=== PATIENT | male | born 1955 | race Caucasian/White ===

== ENCOUNTER 2017-07-03 13:29 | Emergency (ER) | payer OTHER ==
[~2017-07-03] VITALS: Ht 167.6 cm; Wt 87.1 kg
[~2017-07-03 13:29] MED LIST: CINN500C2 PO; GLIP5TAB10 PO; HYDR-2762 PO; IBUP-1027 PO; LISI-338 PO; METF-620 PO; OMEP40CA5 PO; WARF1TAB74 PO
[2017-07-03] MEDS ORDERED: ONDANSETRON PF 4 MG/2 ML VIAL. IV ONE (14:30)
[2017-07-03] MEDS ORDERED: IV NORMAL SALINE 1000ML BAG 1,000 ML IV ONE (14:30)
[2017-07-03] MEDS ORDERED: HYDROmorphone 2 MG/ML VIAL IV ONE (14:30)
[2017-07-03 14:36] LABS: BASO % 0 % (0-3); EOS % 1 % (0-3); HEMATOCRIT 38.2 % (39.0-53.0); HEMOGLOBIN 13.3 g/dL (13.0-17.5); LYMPH % 11 % (24-48); MEAN CORPUSCULAR HEMOGLOBIN 30 pg (25-35); MEAN CORPUSCULAR HGB CONC 35 g/dL (31-37); MEAN CORPUSCULAR VOLUME 86 fL (79-100); MONO % 9 % (0-9); NEUT % 79 % (31-73); PLATELET COUNT 115 x10^3/uL (140-400); RED BLOOD COUNT 4.47 x10^6/uL (4.30-5.70); RED CELL DISTRIBUTION WIDTH 13.8 % (11.5-14.5); WHITE BLOOD COUNT 9.5 x10^3/uL (4.0-11.0)
[2017-07-03 14:47] LABS: CALCIUM 8.7 mg/dL (8.5-10.1); GFR 76.2
[2017-07-03 14:53] LABS: ALBUMIN 3.9 g/dL (3.4-5.0); ALBUMIN/GLOBULIN RATIO 1.1 (1.0-1.7); TOTAL BILIRUBIN 0.7 mg/dL (0.2-1.0); TOTAL PROTEIN 7.5 g/dL (6.4-8.2)
--- NOTE | 2017-07-03 15:02 | PHYS DOC ---
Past Medical History Past Medical History: GERD, Hypertension Past Surgical History: Appendectomy, Other Additional Past Surgical Histo: left knee, right thumb Alcohol Use: None Drug Use: None Adult General Chief Complaint Chief Complaint: ABDOMINAL PAIN HPI HPI Patient is a 62 year old male who presents with 2 day history of moderate severity right upper quadrant abdominal pain, nausea, no vomiting or diarrhea worsened by eating. Denies fever. History of appendectomy. Denies any dysuria or frequency or flank pain. Review of Systems Review of Systems Constitutional: Denies fever or chills [] Eyes: Denies change in visual acuity, redness, or eye pain [] HENT: Denies nasal congestion or sore throat [] Respiratory: Denies cough or shortness of breath [] Cardiovascular: No additional information not addressed in HPI [] GI: Denies abdominal pain, nausea, vomiting, bloody stools or diarrhea [] : Denies dysuria or hematuria [] Musculoskeletal: Denies back pain or joint pain [] Integument: Denies rash or skin lesions [] Neurologic: Denies headache, focal weakness or sensory changes [] Endocrine: Denies polyuria or polydipsia [] Current Medications Current Medications Current Medications Medications (Trade) Dose Ordered Sig/Niecy Start Time Stop Time Status Last Admin Dose Admin Hydromorphone HCl (Dilaudid) 0.5 mg 1X ONCE 07/03/17 14:30 07/03/17 14:34 DC 07/03/17 15:06 0.5 MG Info (Do NOT chart on this entry -- for MONITORING) 1 each PRN DAILY PRN 07/03/17 17:45 07/03/17 19:47 DC Iohexol (Omnipaque 300 Mg/ml) 75 ml 1X ONCE 07/03/17 17:45 07/03/17 17:46 DC 07/03/17 18:08 75 ML Ondansetron HCl (Zofran) 4 mg 1X ONCE 07/03/17 14:30 07/03/17 14:34 DC 07/03/17 15:06 4 MG Sodium Chloride 1,000 ml @ 1,000 mls/hr 1X ONCE 07/03/17 14:30 07/03/17 15:29 DC 07/03/17 15:06 1,000 MLS/HR Allergies Allergies Allergies Coded Allergies Type Severity Reaction Last Updated Verified promethazine Allergy Intermediate 03/17/15 Yes Physical Exam Physical Exam Constitutional: Well developed, well nourished, no acute distress, non-toxic appearance. [] HENT: Normocephalic, atraumatic, bilateral external ears normal, oropharynx moist, no oral exudates, nose normal. [] Eyes: PERRLA, EOMI, conjunctiva normal, no discharge. [] Neck: Normal range of motion, no tenderness, supple, no stridor. [] Cardiovascular:Heart rate regular rhythm, no murmur [] Lungs & Thorax: Bilateral breath sounds clear to auscultation [] Abdomen: Bowel sounds normal, soft, no tenderness, no masses, no pulsatile masses. [] Skin: Warm, dry, no erythema, no rash. [] Back: No tenderness, no CVA tenderness. [] Extremities: No tenderness, no cyanosis, no clubbing, ROM intact, no edema. [] Neurologic: Alert and oriented X 3, normal motor function, normal sensory function, no focal deficits noted. [] Psychologic: Affect normal, judgement normal, mood normal. [] Current Patient Data Vital Signs Vital Signs Date Time Temp Pulse Resp B/P (MAP) Pulse Ox O2 Delivery O2 Flow Rate FiO2 07/03/17 17:57 124/67 (86) 07/03/17 17:41 76 23 94 Room Air 07/03/17 13:35 98.7 98.7 Lab Values Laboratory Tests Test 07/03/17 14:25 07/03/17 17:25 White Blood Count 9.5 x10^3/uL (4.0-11.0) Red Blood Count 4.47 x10^6/uL (4.30-5.70) Hemoglobin 13.3 g/dL (13.0-17.5) Hematocrit 38.2 % (39.0-53.0) L Mean Corpuscular Volume 86 fL (79-100) Mean Corpuscular Hemoglobin 30 pg (25-35) Mean Corpuscular Hemoglobin Concent 35 g/dL (31-37) Red Cell Distribution Width 13.8 % (11.5-14.5) Platelet Count 115 x10^3/uL (140-400) L Neutrophils (%) (Auto) 79 % (31-73) H Lymphocytes (%) (Auto) 11 % (24-48) L Monocytes (%) (Auto) 9 % (0-9) Eosinophils (%) (Auto) 1 % (0-3) Basophils (%) (Auto) 0 % (0-3) Neutrophils # (Auto) 7.5 x10^3uL (1.8-7.7) Lymphocytes # (Auto) 1.0 x10^3/uL (1.0-4.8) Monocytes # (Auto) 0.9 x10^3/uL (0.0-1.1) Eosinophils # (Auto) 0.1 x10^3/uL (0.0-0.7) Basophils # (Auto) 0.0 x10^3/uL (0.0-0.2) Sodium Level 136 mmol/L (136-145) Potassium Level 4.0 mmol/L (3.5-5.1) Chloride Level 100 mmol/L (98-107) Carbon Dioxide Level 26 mmol/L (21-32) Anion Gap 10 (6-14) Blood Urea Nitrogen 13 mg/dL (8-26) Creatinine 1.0 mg/dL (0.7-1.3) Estimated GFR (Cockcroft-Gault) 76.2 BUN/Creatinine Ratio 13 (6-20) Glucose Level 272 mg/dL (70-99) H Calcium Level 8.7 mg/dL (8.5-10.1) Total Bilirubin 0.7 mg/dL (0.2-1.0) Aspartate Amino Transferase (AST) 29 U/L (15-37) Alanine Aminotransferase (ALT) 54 U/L (16-63) Alkaline Phosphatase 64 U/L (46-116) Total Protein 7.5 g/dL (6.4-8.2) Albumin 3.9 g/dL (3.4-5.0) Albumin/Globulin Ratio 1.1 (1.0-1.7) Lipase 167 U/L (73-393) Urine Collection Type Void Urine Color Yellow Urine Clarity Clear Urine pH 5.0 Urine Specific [place] 1.020 Urine Protein Negative mg/dL (NEG-TRACE) Urine Glucose (UA) >=1000 mg/dL (NEG) Urine Ketones (Stick) Negative mg/dL (NEG) Urine Blood Negative (NEG) Urine Nitrite Negative (NEG) Urine Bilirubin Negative (NEG) Urine Urobilinogen Dipstick 0.2 mg/dL (0.2 mg/dL) Urine Leukocyte Esterase Negative (NEG) Urine RBC 0 /HPF (0-2) Urine WBC 0 /HPF (0-4) Urine Squamous Epithelial Cells None /LPF Urine Bacteria 0 /HPF (0-FEW) Urine Mucus Mod /LPF Laboratory Tests 07/03/17 14:25 Laboratory Tests 07/03/17 14:25 EKG EKG EKG [] Radiology/Procedures Radiology/Procedures Ultrasound gallbladder: [negative for gallstones or inflamm changes per radiology CT abd pelvis: pos epiploic appendagitis per radiology] Course & Med Decision Making Course & Med Decision Making Pertinent Labs and Imaging studies reviewed. (See chart for details) Plan of care labs and gallbladder sonogram and symptomatic treatment. Discussed w patient and labs and ct scan and US. may benefit from outpatient HIDA of gallbladder. Treat w pain meds. Counseled re need for diabetes treatment. Patient declined option for obs admission. Dragon Disclaimer Dragon Disclaimer This electronic medical record was generated, in whole or in part, using a voice recognition dictation system. Departure Departure Impression: Primary Impression: Epiploic appendagitis Additional Impression: Hyperglycemia due to type 2 diabetes mellitus Disposition: HOME, SELF-CARE Condition: IMPROVED Referrals: JENARO MERRILL MD (PCP) Patient Instructions: Abdominal Pain, [id number], Hyperglycemia, [id number] Additional Instructions: follow up with PCP for further workup and consideration for HIDA scan of gallbladder. Scripts Oxycodone/Apap 5-325 (PERCOCET 5-325 MG TABLET) 1 Each Tablet 1 TAB PO PRN Q6HRS Y for PAIN, #12 TAB 0 Refills Prov: YOLANDA MCALLISTER MD 07/03/17 Problem Qualifiers YOLANDA MCALLISTER MD Jul 03, 2017 15:02
--- NOTE | 2017-07-03 16:34 | RAD ---
Ultrasound abdomen limited 07/03/2017 Clinical indication: Right upper quadrant abdominal pain. Comparison: Ultrasound November 15, 2013. Findings: The visualized proximal pancreatic body unremarkable. Liver demonstrates increased parenchymal echogenicity compatible with steatosis which limits evaluation of the parenchyma without suspicious focal mass or fluid collection in the visualized portions. No intra or extra hepatic ductal dilatation. Common bile duct measures 4 mm. Right kidney is present measuring up to 12.0 cm in length without clicking system dilatation. Gallbladder is normal in size and configuration without wall thickening, pericholecystic fluid are cholelithiasis. Impression: 1. No sonographic evidence of acute cholecystitis. 2. Mild hepatic steatosis.
[2017-07-03 17:33] LABS: BILIRUBIN,URINE NEGATIVE (NEG); GLUCOSE,URINE >=1000 mg/dL (NEG); NITRITE,URINE NEGATIVE (NEG); PROTEIN,URINE NEGATIVE (NEG-TRACE); UROBILINOGEN,URINE 0.2 mg/dL (0.2 mg/dL)
[2017-07-03 17:38] LABS: BACTERIA,URINE 0 /HPF (0-FEW); RBC,URINE 0 /HPF (0-2); WBC,URINE 0 /HPF (0-4)
[2017-07-03] MEDS ORDERED: CONTRAST GIVEN MC PRN (17:45)
[2017-07-03] MEDS ORDERED: IOHEXOL 300 MG/ML 75 ML VIAL IV ONE (17:45)
[2017-07-03 17:57] VITALS: BP 124/67
--- NOTE | 2017-07-03 18:28 | RAD ---
CT SCAN OF THE ABDOMEN AND PELVIS WITH IV CONTRAST. History: Abdominal pain Comparison:None. Procedure: Contiguous axial images of the abdomen and pelvis were performed after the administration of 75 cc of Omnipaque 300 IV contrast and without oral contrast. CT Abdomen with contrast: Findings: There is a subtle area of inflammation which projects over the epiploic fat anterior to these hepatic flexure of the colon. The appendix appears to have been removed. Liver: Unremarkable Spleen: Unremarkable Pancreas: Unremarkable Adrenal Glands: Unremarkable Kidneys: Unremarkable There is no mass or lymphadenopathy. There is no free air. There is no free fluid. CT Pelvis with Contrast: Findings: The urinary bladder appears normal. There is no free fluid. There is no lymphadenopathy. Impression: Inflammation of the fat anterior to the hepatic flexure of the colon in the right upper quadrant is likely epiploic appendagitis. Other causes of fat infarction are felt to be less likely. PQRS Compliance Statement: One or more of the following individualized dose reduction techniques were utilized for this examination: 1. Automated exposure control 2. Adjustment of the mA and/or kV according to patient size 3. Use of iterative reconstruction technique Electronically signed by: Brendan Coulter III, MD (07/03/2017 6:25 PM) [facility]
[2017-07-03] MEDS ORDERED: OXYC-323 PO (19:04)
[2017-07-04] MEDS ORDERED: LORA10TA68 PO (18:12)
[2017-07-04] MEDS ORDERED: ACET325T9 PO (18:12)
[2017-07-08] MEDS ORDERED: METF500T PO (08:42)
== END 2017-07-03 19:20 | disposition home or self-care (01) ==
LOC: ER 13:29
DX: K63.89 Other specified diseases of intestine (principal); E11.65 Type 2 diabetes mellitus with hyperglycemia; I10 Essential (primary) hypertension; K21.9 Gastro-esophageal reflux disease without esophagitis; Z90.49 Acquired absence of other specified parts of digestive tract; Z88.8 Allergy status to other drugs, medicaments and biological substances
CPT/HCPCS: 36415; 74177; 76705; 80053; 81001; 83690; 85025; 96361; 96374; 96375; 99285; J1170; J2405; J7030; Q9967

== ENCOUNTER 2017-07-04 16:10 | Inpatient (IN) | payer OTHER ==
[~2017-07-04] VITALS: Ht 170.2 cm; Wt 85.7 kg
[~2017-07-04 16:10] MED LIST changes: +OXYC-323 PO
--- NOTE | 2017-07-04 16:28 | HP ---
ADMIT DATE: 07/04/2017 CHIEF COMPLAINT: Right upper quadrant pain. HISTORY OF PRESENT ILLNESS: A 62-year-old white male, mild diabetic and hypertensive, who had about 72 hours of right-sided abdominal pain. He was seen in the office on 07/01 and pain meds were given, but because of increasing pain he went to [facility] on 07/02. Gallbladder sonogram was normal. The CT scan showed epiploic appendage inflammation but no clear surgical problem or mass lesion. Laboratory studies were normal except for mildly elevated blood sugar and his most recent A1c was 7.9. He was given hydrocodone, but the pain has persisted and he was seen in the office and admitted. He has had no vomiting, fever, chills, skin rash or urinary tract symptoms. PAST MEDICAL HISTORY: Surgically ____ appendectomy. He takes only lisinopril and omeprazole, his A1c is 7.9 and metformin was to be started, but he has not started that medicine yet. SOCIAL HISTORY: Nonsmoker, retired program clerk, . Physically active. FAMILY HISTORY: Unremarkable. REVIEW OF SYSTEMS: No other GI symptoms and the most recent colonoscopy was about 2014. OBJECTIVE: ENT: All within normal limits. NECK: No masses, nodes or bruits. LUNGS: Clear. CARDIOVASCULAR: Regular rate. No tachycardia or murmur. ABDOMEN: Diffusely tender mainly in the right upper and lower quadrants. Bowel sounds are not present. He has guarding with no overt rebound. No distention. EXTREMITIES: Good pedal and radial pulses. No joint or skin lesions or nail bed findings. NEUROLOGIC: Physiologic and nonfocal. ASSESSMENT: Right-sided abdominal pain with evidence of epiploic appendagitis present as the most likely diagnosis. Must consider atypical gallbladder source as well. PLAN: Admit for IV fluids and pain medications. May consider hepatobiliary studies if pain persists. JENARO MERRILL MD DR: LEONIE/derick JOB#: [id number] / [id number]
[2017-07-04] MEDS ORDERED: HYDROmorphone 2 MG/ML VIAL IVP PRN (16:45)
[2017-07-04] MEDS: POTASSIUM CL 20MEQ D5-0.45NACL 1,000 ML IV SCH (16:45)
[2017-07-04] MEDS ORDERED: ONDANSETRON PF 4 MG/2 ML VIAL. IV PRN (16:45)
[2017-07-04] MEDS: KETOROLAC TROMETHAMINE 30 MG/ML INJ. IV PRN (17:04)
[2017-07-04 17:29] LABS: BASO % 0 % (0-3); EOS % 0 % (0-3); HEMATOCRIT 39.4 % (39.0-53.0); HEMOGLOBIN 13.4 g/dL (13.0-17.5); LYMPH % 10 % (24-48); MEAN CORPUSCULAR HEMOGLOBIN 30 pg (25-35); MEAN CORPUSCULAR HGB CONC 34 g/dL (31-37); MEAN CORPUSCULAR VOLUME 87 fL (79-100); MONO % 9 % (0-9); NEUT % 80 % (31-73); PLATELET COUNT 116 x10^3/uL (140-400); RED BLOOD COUNT 4.51 x10^6/uL (4.30-5.70); RED CELL DISTRIBUTION WIDTH 13.2 % (11.5-14.5); WHITE BLOOD COUNT 10.9 x10^3/uL (4.0-11.0)
[2017-07-04 17:46] LABS: ALBUMIN 3.6 g/dL (3.4-5.0); ALBUMIN/GLOBULIN RATIO 0.9 (1.0-1.7); CALCIUM 8.9 mg/dL (8.5-10.1); GFR 76.2; TOTAL BILIRUBIN 1.6 mg/dL (0.2-1.0); TOTAL PROTEIN 7.7 g/dL (6.4-8.2)
[2017-07-04] MEDS ORDERED: ACET325T9 PO (18:12)
[2017-07-04] MEDS ORDERED: LORA10TA68 PO (18:12)
[2017-07-04 19:00] VITALS: BP 118/69
[2017-07-04 23:07] VITALS: BP 106/64
[2017-07-05] MEDS: POTASSIUM CL 20MEQ D5-0.45NACL 1,000 ML IV SCH ×3 (00:45→20:38)
[2017-07-05 03:13] VITALS: BP 116/67
[2017-07-05] MEDS: ACETAMINOPHEN 325 MG TABLET. PO PRN (03:25)
--- NOTE | 2017-07-05 04:30 | ACF ---
Admission Forms Criteria ABDOMINAL PAIN Clinical Indications for Admission to Inpatient Care ( [place]/check or initial the applicable condition/criteria): Admission is indicated for ANY ONE of the following (1)(2)(3)(4)(5)(6): [ ]I. Surgery needed that cannot be performed on ambulatory basis [ ]II. Peritoneal signs present (eg, rebound tenderness, rigidity) [ ]III. Evaluation requires patient to not eat or drink for extended period ( eg, more than 24 hours). [X]IV. Inpatient admission required[B] rather than observation care (see Abdominal Pain: Observation Care guideline as appropriate) because of ANY ONE of the following(7)(8)(9): [ ] a) Hemodynamic instability [X]b) Severe pain requiring acute inpatient management [ ]c) Identification of etiology or finding that requires inpatient care (eg, aortic dissection, free air,bowel ischemia)(10) [ ]d) Absent bowel sounds with complete ileus (11) [ ]e) Signs of intestinal obstruction[C] [ ]f) Suspected toxic megacolon [ ]g) Severe electrolyte abnormalities requiring inpatient care [ ]h) High fever or infection requiring inpatient admission as indicated by ANY ONE of the following (12)(13): [ ]i) Appropriate outpatient or observation care antimicrobial treatment unavailable, not effective, or not feasible [ ]ii) Documented bacteremia [ ]iii) Temperature greater than 104.9 degrees F (40.5 degrees C) (oral) [ ]iv) Temperature greater than 103.1 degrees F (39.5 degrees C) ( oral) or less than 96.8 degrees F (36 degrees C) (rectal) that does not respond to all emergency treatment measures [ ]i) IV fluid required rather than oral rehydration to replace significant ongoing (eg, for greater than 24 hours) losses (greater than 3 L/m2 per day)(14)(15) [ ]j) Percutaneous or open drainage (eg, abscess, biliary tract) procedures [ ]k) Parenteral nutrition regimen that must be implemented on inpatient basis [ ]l) Other condition, treatment, or monitoring requiring inpatient admission Extended stay beyond goal length of stay may be needed for (1)(3)(4)(10)(16): [ ]a) Surgery (e.g., colectomy, revascularization procedure) [ ]b) Persistent abdominal pain with suspected intra-abdominal process [ ]c) Diagnosed condition requiring continued stay (e.g., pancreatitis, complicated diverticulitis) The original [facility] content created by [facility] has been revised. The portions of the content which have been revised are identified through the use of italic text, and [facility] has neither reviewed nor approved the modified material.All other unmodified content is copyright [facility]. Please see references footnoted in the original [facility] edition 2015 Admission Criteria Met?: Yes GERARDO PORTILLO Jul 05, 2017 04:30
[2017-07-05 07:00] VITALS: BP 110/72
[2017-07-05] MEDS: PANTOPRAZOLE 40 MG TABLET.DR. PO SCH (07:30)
[2017-07-05] MEDS ORDERED: IOHEXOL 300 MG/ML 75 ML VIAL IV ONE (10:00)
[2017-07-05] MEDS ORDERED: IOHEXOL 240 MG/ML 50ML VIAL. PO ONE (10:00)
[2017-07-05 11:00] VITALS: BP 144/66
[2017-07-05] MEDS: KETOROLAC TROMETHAMINE 30 MG/ML INJ. IV PRN (12:18)
--- NOTE | 2017-07-05 14:43 | RAD ---
CT scan of the abdomen and pelvis with contrast 07/05/2017 Clinical history: Right upper quadrant abdominal pain. Technique: After the oral and intravenous administration of contrast, contiguous, 5 mm axial sections were obtained through the abdomen and pelvis. 75 cc of Omnipaque 300 were administered intravenously during this examination. One or more of the following individualized dose reduction techniques were utilized for this study: 1. Automated exposure control. 2. Adjustment of the mA and/or kV according to patient size. 3. Use of iterative reconstruction technique. Findings: Comparison study dated 07/03/2017. Images through the lung bases demonstrate a minimal right pleural effusion. Dependent subsegmental atelectasis seen involving both lower lobes, right greater than left. The liver has a slightly nodular contour suggestive of cirrhosis. The spleen, pancreas, adrenal glands and kidneys are within normal limits. Mild atherosclerotic calcification of the abdominal aorta is seen. The abdominal aorta tapers normally. The gallbladder is contracted. Small amount of free fluid is seen surrounding the liver. The patient is status post appendectomy. Wall thickening is seen involving the anterior aspect of the ascending colon. Increased density seen within the adjacent fat. These findings have increased since the previous examination. They are felt to most likely represent a focal colitis. No abnormal fluid collection is seen suggest evidence of an abscess. There is no evidence of bowel obstruction. Images through the pelvis demonstrate the urinary bladder distended with urine. A small amount of free fluid is seen within the pelvis. Calcifications are seen within the pelvis consistent with phleboliths. The osseous structures are unchanged. Impression: Wall thickening is seen involving the anterior aspect of the ascending colon. Increased density is seen within the adjacent fat. These findings have increased since the previous examination. They are felt to most likely reflect a focal colitis. No abscess or obstruction is seen. A small amount of free fluid is seen within the abdomen and pelvis.
[2017-07-05 15:00] VITALS: BP 112/72
[2017-07-05 19:58] VITALS: BP 123/67
[2017-07-05] MEDS: HYDROcodone/APAP 7.5/325MG 1 TAB TABLET PO PRN (20:37)
[2017-07-05 22:59] VITALS: BP 101/59
[2017-07-06] MEDS: POTASSIUM CL 20MEQ D5-0.45NACL 1,000 ML IV SCH (00:45)
[2017-07-06] MEDS: ACETAMINOPHEN 325 MG TABLET. PO PRN (05:58)
[2017-07-06 07:00] VITALS: BP 123/77
[2017-07-06] MEDS: PANTOPRAZOLE 40 MG TABLET.DR. PO SCH (08:12)
--- NOTE | 2017-07-06 08:39 | PDOC ---
Provider Note Provider Note vss, no more temp- labs ok, pain a little elss but still very tender R mid abdomen w/ guarding- second ct shows thick area R colon, ? evolviing appendigitis vs focal colitis( ? ischemic)- added flagyl 07/05- will have gi see , cont same meds for now, resume metformin re a1c 7.9 JENARO MERRILL MD Jul 06, 2017 08:39
[2017-07-06] MEDS: metFORMIN 500 MG TABLET PO SCH ×2 (09:55→17:01)
[2017-07-06 11:00] VITALS: BP 118/69
--- NOTE | 2017-07-06 12:35 | PDOC2 ---
GI CONSULT Reason For Consult: Focal colitis HPI: HPI: 62 y/o male w/ right-sided abd pain x 1 week. Worsening overall, specifically worse when touched and with movement. Was worse after eating over the weekend but now tolerating full liquids. Occasional "stomach upset" but denies nausea and vomiting. H/o GERD on PPI (omeprazole OTC) QD. Hadn't had a bowel movement in a couple days, did have a small stool this morning, no change in pain. No diarrhea, hematochezia, melena. Feels bloated on the right side. No NSAID use; instead takes Tylenol QD. Reports previous EGD and colonoscopy for anemia w/o significant findings, he believes within last 5 years. He says Hgb improved w/ iron; SBCE was discussed but not pursued. No liver, gallbladder, or pancreas history. S/p appendectomy. Normal WBC, Hgb, LFTs except bili 1.6. Imaging below; CT on 07/03 w/ epiploic appendagitis, repeat exam 07/05 w/ wall thickening in anterior ascending colon and increased density is seen within the adjacent fat (increased since the previous examination, likely reflect focal colitis). On IV Flagyl. PMH: PMH: HTN, DM, GERD, OA, appendectomy, thumb surgery, knee surgery FH: Family History: Cancer (paternal grandmother - stomach cancer), Other (father - ulcers) Social History: Smoke: Quit ALCOHOL: rare Drugs: None ROS: GEN: Denies fevers, chills, sweats HEENT: Denies blurred vision, sore throat CV: Denies chest pain RESP: Denies shortness of air, cough GI: Per HPI : Denies hematuria, dysuria ENDO: Denies weight changes NEURO: Denies confusion, dizziness MSK: Denies weakness, joint pain/swelling SKIN: Denies jaundice, pruritus Vitals: Vitals: Vital Signs Date Time Temp Pulse Resp B/P (MAP) Pulse Ox O2 Delivery O2 Flow Rate FiO2 07/06/17 11:00 98.1 64 18 118/69 (85) 96 Room Air 98.1 Labs: Labs: Reviewed from 07/04/17, please see EMR. Allergies: Coded Allergies: promethazine (Verified Allergy, Intermediate, 03/17/15) makes pt. combative Medications: Current Medications Medications (Trade) Dose Ordered Sig/Niecy Route PRN Reason Start Time Stop Time Status Last Admin Dose Admin Metronidazole 100 ml @ 100 mls/hr Q12HR IV 07/05/17 18:45 07/06/17 08:13 Acetaminophen/ Hydrocodone Bitart (Lortab 7.5/325) 1 tab PRN Q6HRS PRN PO PAIN 07/05/17 18:30 07/05/17 20:37 Metformin HCl (Glucophage) 500 mg BIDWMEALS PO 07/06/17 09:00 07/06/17 09:55 Imaging: Imaging: CT A/P 07/05/17 w/ oral anFindings: Comparison study dated 07/03/2017. Images through the lung bases demonstrate a minimal right pleural effusion. Dependent subsegmental atelectasis seen involving both lower lobes, right greater than left. The liver has a slightly nodular contour suggestive of cirrhosis. The spleen, pancreas, adrenal glands and kidneys are within normal limits. Mild atherosclerotic calcification of the abdominal aorta is seen. The abdominal aorta tapers normally. The gallbladder is contracted. Small amount of free fluid is seen surrounding the liver. The patient is status post appendectomy. Wall thickening is seen involving the anterior aspect of the ascending colon. Increased density seen within the adjacent fat. These findings have increased since the previous examination. They are felt to most likely represent a focal colitis. No abnormal fluid collection is seen suggest evidence of an abscess. There is no evidence of bowel obstruction. Images through the pelvis demonstrate the urinary bladder distended with urine. A small amount of free fluid is seen within the pelvis. Calcifications are seen within the pelvis consistent with phleboliths. The osseous structures are unchanged. Impression: Wall thickening is seen involving the anterior aspect of the ascending colon. Increased density is seen within the adjacent fat. These findings have increased since the previous examination. They are felt to most likely reflect a focal colitis. No abscess or obstruction is seen. A small amount of free fluid is seen within the abdomen and pelvis. CT A/P 07/03/17 w/ IV contrast Impression: Inflammation of the fat anterior to the hepatic flexure of the colon in the right upper quadrant is likely epiploic appendagitis. Other causes of fat infarction are felt to be less likely. RUQ US 07/03/17 Findings: The visualized proximal pancreatic body unremarkable. Liver demonstrates increased parenchymal echogenicity compatible with steatosis which limits evaluation of the parenchyma without suspicious focal mass or fluid collection in the visualized portions. No intra or extra hepatic ductal dilatation. Common bile duct measures 4 mm. Right kidney is present measuring up to 12.0 cm in length without clicking system dilatation. Gallbladder is normal in size and configuration without wall thickening, pericholecystic fluid are cholelithiasis. Impression: 1. No sonographic evidence of acute cholecystitis. 2. Mild hepatic steatosis. SBFT 01/2014 IMPRESSION: There is some fold thickening of the more distal small bowel. Findings are nonspecific, could be associated with etiology such as enteritis such as from inflammatory or infectious etiologies, less commonly neoplastic etiology. Abd US 11/2013 IMPRESSION: 1. No significant gallbladder abnormality is detected. 2. Increased hepatic echogenicity suggesting fatty change. HIDA 11/2013 IMPRESSION: 1. Normal radionuclide hepatobiliary scan. 2. The gallbladder ejection fraction is 76%. PE: GEN: NAD HEENT: Atraumatic, PERRL LUNGS: CTAB anteriorly HEART: RRR ABD: BS+, point tenderness RUQ region w/ some firmness, also slight RLQ discomfort, some guarding EXTREMITY: No edema SKIN: No rashes, no jaundice NEURO/PSYCH: A & O 3 A/P: A/P: Right-sided abd pain -worse when touched and w/ movement, previously bothersome after eating but now tolerating full liquids -s/p appendectomy, RUQ US unrevealing Abnormal CT A/P -07/03: epiploic appendagitis -07/05: wall thickening in anterior ascending colon and increased density is seen within the adjacent fat (increased since the previous examination, likely reflect focal colitis) -on IV Flagyl GERD -controlled w/ PPI CRC screen -reports normal colonoscopy within 5 years -- Will review any office records of previous 'scopes. Dr. Rooney to see this afternoon. Will try GI soft for dinner. UPDATE: EGD and colonoscopy 10/03/13: Grade 1 esophagitis (path negative for Mendosa's), non-erosive gastritis (no biopsy), normal mucosa in the duodenum, internal hemorrhoids. EDDIE SANCHEZ Jul 06, 2017 12:35
[2017-07-06] MEDS: HYDROcodone/APAP 7.5/325MG 1 TAB TABLET PO PRN ×2 (13:53→20:02)
[2017-07-06 15:00] VITALS: BP 121/77
[2017-07-06 19:00] VITALS: BP 132/78
[2017-07-06 22:50] VITALS: BP 124/75
[2017-07-07] MEDS: HYDROcodone/APAP 7.5/325MG 1 TAB TABLET PO PRN ×2 (04:11→13:38)
[2017-07-07 04:28] VITALS: BP 118/69
[2017-07-07] MEDS: PANTOPRAZOLE 40 MG TABLET.DR. PO SCH (05:59)
[2017-07-07 07:00] VITALS: BP 125/79
--- NOTE | 2017-07-07 08:38 | PDOC ---
Provider Note Provider Note PAIN JUST A LITTLE BETTER, BUT STILL VERY TENDER r SIDE W/ GUARDING- VSS, NO TEMP, LAB PENDING - WILL USE PO FLAGYL 1 MORE DAY, LIKELY DISCHARGE 07/08 IF NO FLARE OF SXS- BACK ON METFORMIN RE HIGHER A1C JENARO MERRILL MD Jul 07, 2017 08:38
[2017-07-07] MEDS: metFORMIN 500 MG TABLET PO SCH ×2 (08:39→16:44)
[2017-07-07] MEDS: metroNIDAZOLE 500 MG TABLET PO SCH ×2 (08:53→16:44)
[2017-07-07] MEDS: ACETAMINOPHEN 325 MG TABLET. PO PRN (08:53)
--- NOTE | 2017-07-07 09:10 | RAD ---
AP portable chest radiograph 07/06/2017 Clinical History: Night sweats right chest wall pain for one week with shortness of breath on inspiration and cough for 2 days. An AP portable erect digital radiograph of the chest was obtained. Comparison study is dated 02/24/2015. The cardiac silhouette is borderline enlarged. The thoracic aorta is mildly tortuous. No acute pulmonary infiltrate is seen. No pleural effusion or pneumothorax is noted. Degenerative changes are seen involving the thoracic spine and both shoulders. Impression: No acute abnormality is seen.
--- NOTE | 2017-07-07 09:44 | PDOC ---
Subjective: Subjective: Feeling a little better. Feels like has to clear throat - hesitant to cough 2/2 abd pain. Tolerating diet. Slept well but awoke at 5:30 a.m. w/ night sweats. Objective: Vital Signs: Vital Signs Date Time Temp Pulse Resp B/P (MAP) Pulse Ox O2 Delivery O2 Flow Rate FiO2 07/07/17 08:00 Room Air 07/07/17 07:00 97.7 64 18 125/79 (94) 95 97.7 Imaging: CXR Impression: No acute abnormality is seen. PE: GEN: NAD, up to chair LUNGS: CTAB HEART: RRR ABD: stable right-sided discomfort NEURO/PSYCH: A & O 3 A/P: Right-sided abd pain -worse when touched and w/ movement, previously bothersome after eating but now tolerating full liquids -s/p appendectomy, RUQ US unrevealing, CTs w/ epiploic appendagitis -last EGD and colonoscopy in 2012, h/o GERD on PPI -did have HIDA in 2013, normal Night sweats -defer to PCP -- ADAT, note possible DC tomorrow. EDDIE SANCHEZ Jul 07, 2017 09:44
[2017-07-07 11:00] VITALS: BP 125/77
[2017-07-07 15:29] VITALS: BP 129/71
[2017-07-07 19:00] VITALS: BP 132/77
[2017-07-07] MEDS ORDERED: diphenhydrAMINE HCL 25 MG CAPSULE PO PRN (19:00)
[2017-07-07] MEDS: IBUPROFEN 600 MG TABLET. PO PRN (19:58)
[2017-07-07 22:33] VITALS: BP 116/76
[2017-07-08 07:00] VITALS: BP 121/78
[2017-07-08] MEDS: metFORMIN 500 MG TABLET PO SCH (08:13)
[2017-07-08] MEDS: metroNIDAZOLE 500 MG TABLET PO SCH (08:13)
[2017-07-08] MEDS: PANTOPRAZOLE 40 MG TABLET.DR. PO SCH (08:13)
[2017-07-08] MEDS: IBUPROFEN 600 MG TABLET. PO PRN (08:14)
--- NOTE | 2017-07-08 08:41 | DISCH ---
DISCHARGE INSTRUCTIONS Condition on Discharge Condition on Discharge: Stable Activity After Discharge Activity Instructions for Disc: No restrictions Diet after Discharge Diet after Discharge: Regular Follow-Up Follow up with: dr giuliano Jean w JENARO MERRILL MD Jul 08, 2017 08:41
[2017-07-08] MEDS ORDERED: METF500T PO (08:42)
--- NOTE | 2017-07-08 08:44 | PDOC ---
Provider Note Provider Note [id number] JENARO MERRILL MD Jul 08, 2017 08:44
--- NOTE | 2017-07-08 09:40 | PDOC ---
Subjective: Subjective: Feels about the same. Tolerating PO. Tired of being cooped up, looking forward to going home and getting some sun on the back porch this weekend. Objective: Vital Signs: Vital Signs Date Time Temp Pulse Resp B/P (MAP) Pulse Ox O2 Delivery O2 Flow Rate FiO2 07/08/17 08:00 Room Air 07/08/17 07:00 97.9 74 20 121/78 (92) 95 97.9 PE: GEN: NAD, walking around room LUNGS: CTAB HEART: RRR ABD: right-sided tenderness - stable NEURO/PSYCH: A & O 3 A/P: Right-sided abd pain -s/p appendectomy, RUQ US unrevealing, CTs w/ epiploic appendagitis -last EGD and colonoscopy in 2012, h/o GERD on PPI -did have HIDA in 2013, normal -- DC per primary, follow-up w/ GI PRN (next screening colonoscopy due 2022). EDDIE SANCHEZ Jul 08, 2017 09:40
--- NOTE | 2017-07-08 09:53 | DS ---
DATE OF DISCHARGE: 07/08/2017 HOSPITAL SUMMARY: A 62-year-old white male with an outpatient evaluation of abdominal pain, which showed epiploic appendagitis on the CT scan. Office evaluation showed increasingly severe pain and he was admitted for further treatment. CBC, chemistry profile, white count were unremarkable and outpatient A1c was 7.9. Repeat CT scan a few days after the initial scan showed some wall thickening in the anterior aspect of the ascending colon with no other abnormalities, abscesses or obstruction seen and chest x-ray was clear. He was given IV fluids and some IV Flagyl and has remained afebrile and stable to tolerate advancing diet and is comfortable to be followed as an outpatient at this point. He was seen in consultation by Dr. Rooney during the hospital stay as well. FINAL DIAGNOSIS: Abdominal pain secondary to epiploic appendagitis. OPERATIONS, PROCEDURES, COMPLICATIONS: None. CONSULTATIONS: Dr. Rooney. DISPOSITION: Ibuprofen as needed for pain. Metformin 500 mg twice a day, which is new for his diabetes, no other new medications. Activity and diabetic diet. Office followup in 1 week. JENARO MERRILL MD DR: LEONIE/derick JOB#: [id number] / [id number]
== END 2017-07-08 11:00 | disposition home or self-care (01) | DRG 395 ==
LOC: 5 NORTH 16:15 → 5 SOUTH 07-07 17:35
PROVIDERS: ADMIT Family Medicine; ATTEND Family Medicine
DX: K63.89 Other specified diseases of intestine (principal); E11.65 Type 2 diabetes mellitus with hyperglycemia; K76.0 Fatty (change of) liver, not elsewhere classified; I10 Essential (primary) hypertension; K21.9 Gastro-esophageal reflux disease without esophagitis; K52.9 Noninfective gastroenteritis and colitis, unspecified; Z90.49 Acquired absence of other specified parts of digestive tract; Z90.89 Acquired absence of other organs; Z88.8 Allergy status to other drugs, medicaments and biological substances; Z80.0 Family history of malignant neoplasm of digestive organs
CPT/HCPCS: 36415; 71010; 74177; 80053; 85025; 86481; J1170; J1885; J3490; Q0163; Q9966; Q9967

== ENCOUNTER → 2019-09-25 | Outpatient (CLI) | payer OTHER ==
[~2019-09-25] MED LIST changes: +ACET325T9 PO; -HYDR-2762 PO; +HYDR-2765 PO; +IBUP-1007 PO; +LORA10TA68 PO; -METF-620 PO; +METF10007 PO; +METF500T PO; +OMEP40CA45 PO; -OMEP40CA5 PO; -OXYC-323 PO; +OXYC1TAB15 PO
[2019-09-25 14:13] LABS: BASO % 1 % (0-3); EOS # 0.1 x10^3/uL (0.0-0.7); EOS % 3 % (0-3); HEMATOCRIT 40.1 % (39.0-53.0); HEMOGLOBIN 13.5 g/dL (13.0-17.5); LYMPH # 1.6 x10^3/uL (1.0-4.8); LYMPH % 31 % (24-48); MEAN CORPUSCULAR HEMOGLOBIN 29 pg (25-35); MEAN CORPUSCULAR HGB CONC 34 g/dL (31-37); MEAN CORPUSCULAR VOLUME 87 fL (79-100); MONO # 0.5 x10^3/uL (0.0-1.1); MONO % 9 % (0-9); NEUT % 57 % (31-73); PLATELET COUNT 118 x10^3/uL (140-400); RED BLOOD COUNT 4.63 x10^6/uL (4.30-5.70); RED CELL DISTRIBUTION WIDTH 13.8 % (11.5-14.5); WHITE BLOOD COUNT 5.2 x10^3/uL (4.0-11.0)
--- NOTE | 2019-09-25 14:16 | EKG ---
[facility] [address] [place] [address] Test Date: 2019-09-25 Test Time: 14:09:32 Pat Name: JAVIER MORAN Department: Room: Gender: M Manager Photography: : 1955 Requested By: RAMESH PARTIDA Order Number: [id number] Reading MD: Dany Perry MD Measurements Intervals [place] Rate: 64 P: 22 [place]: 160 QRS: -10 QRSD: 74 T: 7 QT: 364 QTc: 375 Interpretive Statements SINUS RHYTHM Electronically Signed On 09-27-2019 9:37:29 [employer]ICULT[employer] TECHNOLOGIST by Dany Perry MD
[2019-09-25 14:22] LABS: PROTHROMBIN TIME PATIENT 13.4 SEC (11.7-14.0)
[2019-09-25 14:27] LABS: ALBUMIN 4.1 g/dL (3.4-5.0); CALCIUM 9.5 mg/dL (8.5-10.1); CREATININE 0.9 mg/dL (0.7-1.3); GFR 85.5; POTASSIUM 4.1 mmol/L (3.5-5.1)
--- NOTE | 2019-09-25 16:18 | RAD ---
EXAM: CHEST 2 VIEWS. HISTORY: Preoperative risk factors. COMPARISON: 07/06/2017. FINDINGS: Frontal and lateral views of the chest are obtained. There are no confluent infiltrates. There is no pneumothorax or pleural effusion. The heart is not enlarged. IMPRESSION: 1. No confluent infiltrates. Electronically signed by: Andres Henning MD (09/25/2019 4:14 PM) [facility]
[2019-09-26 00:07] LABS: HEMOGLOBIN A1C 7.2 % (4.8-5.6)
== END | disposition home or self-care (01) ==
LOC: SURGPAT 13:25
PROVIDERS: ATTEND Orthopaedic Surgery Sports Medicine
DX: Z01.818 Encounter for other preprocedural examination (principal); M17.11 Unilateral primary osteoarthritis, right knee
CPT/HCPCS: 36415; 71046; 80048; 82040; 82306; 83036; 85025; 85610; 85730; 87641; 93005

== ENCOUNTER 2019-11-01 13:31 | Inpatient (IN) | payer OTHER ==
[~2019-11-01] VITALS: Ht 167.6 cm; Wt 81.9 kg
[2019-11-01] MEDS ORDERED: WARF-78 PO (14:28)
[2019-11-01 14:30] VITALS: BP 119/73
[2019-11-01] MEDS ORDERED: OXYC1TAB22 PO (14:30)
[2019-11-01 15:53] LABS: BASO % 0 % (0-3); EOS % 1 % (0-3); HEMATOCRIT 32.6 % (39.0-53.0); HEMOGLOBIN 10.9 g/dL (13.0-17.5); LYMPH # 1.2 x10^3/uL (1.0-4.8); LYMPH % 18 % (24-48); MEAN CORPUSCULAR HEMOGLOBIN 28 pg (25-35); MEAN CORPUSCULAR HGB CONC 33 g/dL (31-37); MEAN CORPUSCULAR VOLUME 85 fL (79-100); MONO # 0.7 x10^3/uL (0.0-1.1); MONO % 10 % (0-9); NEUT # 4.7 x10^3/uL (1.8-7.7); NEUT % 71 % (31-73); PLATELET COUNT 429 x10^3/uL (140-400); RED BLOOD COUNT 3.85 x10^6/uL (4.30-5.70); RED CELL DISTRIBUTION WIDTH 13.9 % (11.5-14.5); WHITE BLOOD COUNT 6.7 x10^3/uL (4.0-11.0)
[2019-11-01 16:14] LABS: C-REACTIVE PROTEIN 55.4 mg/L (0-3.3); CALCIUM 9.2 mg/dL (8.5-10.1); CREATININE 0.9 mg/dL (0.7-1.3); GFR 85.5; POTASSIUM 4.2 mmol/L (3.5-5.1)
--- NOTE | 2019-11-01 16:22 | NUR ---
pt direct admit from Dr. Brooks's office. admitted under Dr. Isaac but apparently is Dr. Eubanks patient. message left w/ Dr. Eubanks's office regarding this. oriented to room and call light.
[2019-11-01] MEDS ORDERED: DEXTROSE 50% 25 GM / 50ML DISP.SYRIN. IV PRN (16:30)
[2019-11-01] MEDS ORDERED: ONDANSETRON PF 4 MG/2 ML VIAL. IV PRN (16:30)
[2019-11-01] MEDS: INSULIN LISPRO 300 UNITS/3 ML VIAL. SQ SCH ×2 (16:30→20:59)
[2019-11-01] MEDS ORDERED: IV DEXTROSE 5% 250 ML BAG. IV PRN (16:30)
[2019-11-01] MEDS: oxyCODONE/APAP 10/325 1 TAB TABLET PO PRN ×2 (17:03→21:06)
[2019-11-01 19:00] VITALS: BP 115/65
[2019-11-01 23:00] VITALS: BP 112/69
[2019-11-02 03:00] VITALS: BP 125/71
[2019-11-02] MEDS: oxyCODONE/APAP 10/325 1 TAB TABLET PO PRN (05:17)
[2019-11-02 07:00] VITALS: BP 128/77
[2019-11-02] MEDS: INSULIN LISPRO 300 UNITS/3 ML VIAL. SQ SCH ×2 (07:30→11:30)
[2019-11-02] MEDS ORDERED: PANTOPRAZOLE 40 MG TABLET.DR. PO SCH (07:30)
[2019-11-02] MEDS: ACETAMINOPHEN 325 MG TABLET. PO PRN ×2 (08:32→11:49)
--- NOTE | 2019-11-02 08:49 | PDOC ---
JENARO MERRILL MD Nov 02, 2019 08:49
[2019-11-02] MEDS ORDERED: LISINOPRIL 5 MG TABLET. PO SCH (09:00)
[2019-11-02] MEDS ORDERED: CETIRIZINE HCL 10 MG TABLET. PO SCH (09:00)
--- NOTE | 2019-11-02 09:08 | PDOC2 ---
CONSULT Date of Consult Date of Consult DATE: 11/02/19 TIME: 08:53 Reason for Consult Reason for Consult: RIGHT knee pain, swelling, fever at home Referring Physician Referring Physician: Abelardo Eubanks MD Identification/Chief Complaint Chief Complaint Acute swelling in RIGHT knee s/p TKA during PT session followed by fever, chills, illness. Problems: (1) S/P total knee arthroplasty (2) Effusion of bursa of right knee Source Source: Caregiver, Patient History of Present Illness Reason for Visit: Patient seen by PCM yesterday and worked in to Ortho clinic with me regarding concern for post op infection right knee after TKA due to swelling and increased pain, fever. Last Tuesday he had been in PT and on the stationary cycle rocking peddles back and forth and incidentally his RIGHT knee was forced into flexion likely by his downstroke with the opposite extremity, resulting in severe pain, swelling in the knee. He had been doing very well up to that point. X-ray in clinic showed minimal effusion but significant soft tissue swelling so Synovasure was avoided and discussed with surgeon about admission for possible soft tissue infection, internal suture ruptures. Past Medical History Cardiovascular: No pertinent hx Pulmonary: No pertinent hx GI: No pertinent hx Psych: No pertinent hx Musculoskeletal: Swelling, Other (s/p RIGHT Knee TKA with swelling, increased pain.) Rheumatologic: No pertinent hx Infectious disease: No pertinent hx ENT: No pertinent hx Renal/: No pertinent hx Past Surgical History Past Surgical History: Total knee replacement Social History Social History ALCOHOL: rare Drugs: None Lives: with Family Current Problem List Problem List Swollen painful RIGHT knee after TKA. Current Medications Current Medications Current Medications Ondansetron HCl (Zofran) 4 mg PRN Q4HRS PRN IV NAUSEA/VOMITING; Start 11/01/19 at 16:30 Acetaminophen (Tylenol) 650 mg PRN Q4HRS PRN PO TEMP OVER 100.4F OR MILD PAIN Last administered on 11/02/19at 08:32; Start 11/01/19 at 16:30 Insulin Human Lispro (HumaLOG) 0-5 UNITS TIDACHC SQ ; Start 11/01/19 at 16:30 Dextrose (Dextrose 50%-Water Syringe) 12.5 gm PRN Q15MIN PRN IV SEE COMMENTS; Start 11/01/19 at 16:30 Dextrose (Iv Dextrose 5%) 250 ml PRN Q15MIN PRN IV SEE COMMENTS; Start at 16:30 Lisinopril (Prinivil) 5 mg DAILY PO Last administered on 11/02/19at 08:29; Start 11/02/19 at 09:00 Oxycodone/ Acetaminophen (Percocet 10/325) 1 tab PRN Q6HRS PRN PO PAIN Last administered on 11/02/19at 05:17; Start 11/01/19 at 16:30 Cetirizine HCl (ZyrTEC) 10 mg DAILY PO Last administered on 11/02/19at 08:28; Start 11/02/19 at 09:00; Stop 11/02/19 at 08:43; Status DC Pantoprazole Sodium (Protonix) 40 mg DAILYAC PO Last administered on 11/02/19at 08:29; Start 11/02/19 at 07:30 Metformin HCl (Glucophage) 500 mg BIDWMEALS PO ; Start 11/02/19 at 12:00; Status UNV Active Scripts Active Glucophage (Metformin Hcl) 500 Mg Tablet 500 Mg PO BIDWMEALS 30 Days Reported Percocet 10-325 Mg Tablet (Oxycodone/Acetaminophen) 1 Each Tablet 1 Tab PO PRN Q6HRS PRN Coumadin (Warfarin Sodium) 5 Mg Tablet 5 Mg PO DAILY Claritin (Loratadine) 10 Mg Tablet 1 Tab PO DAILY Lisinopril 5 Mg Tablet 5 Mg PO DAILY Blood pressure medications held due to low blood pressure. Check blood pressure before taking. Omeprazole 40 Mg Capsule.dr 20 Mg PO DAILY LAST DOSE GIVEN: DATE:03-20-15 TIME:8:30 a.m. NEXT DOSE DUE: DATE:03-21-15 TIME:7:30 a.m. Allergies Allergies: Coded Allergies: promethazine (Verified Allergy, Intermediate, 10/15/19) makes pt. combative ROS General: YES: Chills Musculoskeletal: Yes Joint Pain, Yes Joint Swelling, Yes Muscle Pain, Yes Pain In: (RIGHT distal quadriceps) Physical Exam General: Alert, Oriented X3, No acute distress HEENT: Atraumatic Lungs: Normal air movement Extremities: No cyanosis Skin: No rashes, No breakdown Neuro: Normal speech, Normal tone, Sensation intact Psych/Mental Status: Mental status NL MUSCULOSKELETAL: Abnormal exam of right (KNEE with very swollen, tender distal quadriceps. Extensor mechanism intact, no palpable deformity of the muscle or fascia.) Vitals VITALS Vital Signs Date Time Temp Pulse Resp B/P (MAP) Pulse Ox O2 Delivery O2 Flow Rate FiO2 11/02/19 08:29 77 128/77 11/02/19 07:23 Room Air 11/02/19 03:00 98.6 18 97 98.6 Labs Labs Laboratory Tests Test 11/01/19 15:30 11/01/19 20:22 11/02/19 08:24 White Blood Count 6.7 x10^3/uL (4.0-11.0) Red Blood Count 3.85 x10^6/uL (4.30-5.70) Hemoglobin 10.9 g/dL (13.0-17.5) Hematocrit 32.6 % (39.0-53.0) Mean Corpuscular Volume 85 fL (79-100) Mean Corpuscular Hemoglobin 28 pg (25-35) Mean Corpuscular Hemoglobin Concent 33 g/dL (31-37) Red Cell Distribution Width 13.9 % (11.5-14.5) Platelet Count 429 x10^3/uL (140-400) Neutrophils (%) (Auto) 71 % (31-73) Lymphocytes (%) (Auto) 18 % (24-48) Monocytes (%) (Auto) 10 % (0-9) Eosinophils (%) (Auto) 1 % (0-3) Basophils (%) (Auto) 0 % (0-3) Neutrophils # (Auto) 4.7 x10^3/uL (1.8-7.7) Lymphocytes # (Auto) 1.2 x10^3/uL (1.0-4.8) Monocytes # (Auto) 0.7 x10^3/uL (0.0-1.1) Eosinophils # (Auto) 0.0 x10^3/uL (0.0-0.7) Basophils # (Auto) 0.0 x10^3/uL (0.0-0.2) Erythrocyte Sedimentation Rate 100 (0-15) Prothrombin Time 15.0 SEC (11.7-14.0) Prothromb Time International Ratio 1.2 (0.8-1.1) Sodium Level 137 mmol/L (136-145) Potassium Level 4.2 mmol/L (3.5-5.1) Chloride Level 98 mmol/L (98-107) Carbon Dioxide Level 31 mmol/L (21-32) Anion Gap 8 (6-14) Blood Urea Nitrogen 14 mg/dL (8-26) Creatinine 0.9 mg/dL (0.7-1.3) Estimated GFR (Cockcroft-Gault) 85.5 Glucose Level 116 mg/dL (70-99) Calcium Level 9.2 mg/dL (8.5-10.1) C-Reactive Protein, Quantitative 55.4 mg/L (0-3.3) Glucose (Fingerstick) 184 mg/dL (70-99) 165 mg/dL (70-99) Laboratory Tests Test 11/01/19 15:30 11/01/19 20:22 11/02/19 08:24 White Blood Count 6.7 x10^3/uL (4.0-11.0) Red Blood Count 3.85 x10^6/uL (4.30-5.70) Hemoglobin 10.9 g/dL (13.0-17.5) Hematocrit 32.6 % (39.0-53.0) Mean Corpuscular Volume 85 fL (79-100) Mean Corpuscular Hemoglobin 28 pg (25-35) Mean Corpuscular Hemoglobin Concent 33 g/dL (31-37) Red Cell Distribution Width 13.9 % (11.5-14.5) Platelet Count 429 x10^3/uL (140-400) Neutrophils (%) (Auto) 71 % (31-73) Lymphocytes (%) (Auto) 18 % (24-48) Monocytes (%) (Auto) 10 % (0-9) Eosinophils (%) (Auto) 1 % (0-3) Basophils (%) (Auto) 0 % (0-3) Neutrophils # (Auto) 4.7 x10^3/uL (1.8-7.7) Lymphocytes # (Auto) 1.2 x10^3/uL (1.0-4.8) Monocytes # (Auto) 0.7 x10^3/uL (0.0-1.1) Eosinophils # (Auto) 0.0 x10^3/uL (0.0-0.7) Basophils # (Auto) 0.0 x10^3/uL (0.0-0.2) Erythrocyte Sedimentation Rate 100 (0-15) Prothrombin Time 15.0 SEC (11.7-14.0) Prothromb Time International Ratio 1.2 (0.8-1.1) Sodium Level 137 mmol/L (136-145) Potassium Level 4.2 mmol/L (3.5-5.1) Chloride Level 98 mmol/L (98-107) Carbon Dioxide Level 31 mmol/L (21-32) Anion Gap 8 (6-14) Blood Urea Nitrogen 14 mg/dL (8-26) Creatinine 0.9 mg/dL (0.7-1.3) Estimated GFR (Cockcroft-Gault) 85.5 Glucose Level 116 mg/dL (70-99) Calcium Level 9.2 mg/dL (8.5-10.1) C-Reactive Protein, Quantitative 55.4 mg/L (0-3.3) Glucose (Fingerstick) 184 mg/dL (70-99) 165 mg/dL (70-99) Assessment/Plan Assessment/Plan Ultrasound RIGHT knee and distal quadriceps for possible fascial tear, muscle tear, hematoma. IF tear then Dr Brooks will repair and pt to remain NPO. IF negative for tear of fascia then patient will be discharged today and followed in clinic. SALUD GARCIA Jr. PAC Nov 02, 2019 09:07
[2019-11-02 11:00] VITALS: BP 113/70
[2019-11-02] MEDS ORDERED: metFORMIN 500 MG TABLET PO SCH (12:00)
--- NOTE | 2019-11-02 13:36 | RAD ---
EXAM: Soft tissue ultrasound right thigh. HISTORY: Quadriceps hematoma versus tear after arthroplasty. COMPARISON: 11/01/2019. FINDINGS: A heterogeneous collection about the knee most likely represents a complicated effusion or hemarthrosis. The quadriceps tendon, patellar tendon and medial patellar retinacular incisions appear intact. There is no clear dehiscence or associated hematoma. IMPRESSION: 1. No clear incisional dehiscence or quadriceps tear. 2. Suspect a large hemarthrosis. Electronically signed by: Andres Henning MD (11/02/2019 1:32 PM) [facility]
--- NOTE | 2019-11-02 14:15 | NUR ---
Discharge Note: RADHA MORAN Discharge instructions and discharge home medications reviewed with Patient and a copy given. All questions have been answered and understanding verbalized. The following instructions and handouts were given: information about follow up appointment, medications, etc. Discontinued lines and drains: IV line in right forearm removed, catheter tip intact. Patient discharged to home with self care with , wheelchair used for mobility to discharge vehicle.
[2019-11-02] MEDS ORDERED: WARFARIN 5 MG TABLET. PO SCH (16:00)
--- NOTE | 2019-11-02 20:15 | PDOC ---
PROGRESS NOTES Subjective Subjective Problems overnight: Examined patient and noted history per patient of acute onset of pain while in physical therapy on a stationary bike with a acute increased flexion range of motion of the knee which was otherwise doing well up to this point. No fever observed while in the hospital Objective Vital Signs Vital Signs Date Time Temp Pulse Resp B/P (MAP) Pulse Ox O2 Delivery O2 Flow Rate FiO2 11/02/19 11:00 98.0 73 18 113/70 (84) 97 Room Air 98.0 Physical Exam No redness observed on the wound some mild warmth consistent with hematoma/hemarthrosis and patella not maltracking nor is a void palpated in the distal quadriceps tendon or retinacular repair. No wound drainage redness or erythema quadriceps mechanism intact no extensor lag distal neurovascular status intact Labs Laboratory Tests Test 11/01/19 15:30 11/01/19 20:22 11/02/19 08:24 11/02/19 11:29 White Blood Count 6.7 x10^3/uL (4.0-11.0) Red Blood Count 3.85 x10^6/uL (4.30-5.70) Hemoglobin 10.9 g/dL (13.0-17.5) Hematocrit 32.6 % (39.0-53.0) Mean Corpuscular Volume 85 fL (79-100) Mean Corpuscular Hemoglobin 28 pg (25-35) Mean Corpuscular Hemoglobin Concent 33 g/dL (31-37) Red Cell Distribution Width 13.9 % (11.5-14.5) Platelet Count 429 x10^3/uL (140-400) Neutrophils (%) (Auto) 71 % (31-73) Lymphocytes (%) (Auto) 18 % (24-48) Monocytes (%) (Auto) 10 % (0-9) Eosinophils (%) (Auto) 1 % (0-3) Basophils (%) (Auto) 0 % (0-3) Neutrophils # (Auto) 4.7 x10^3/uL (1.8-7.7) Lymphocytes # (Auto) 1.2 x10^3/uL (1.0-4.8) Monocytes # (Auto) 0.7 x10^3/uL (0.0-1.1) Eosinophils # (Auto) 0.0 x10^3/uL (0.0-0.7) Basophils # (Auto) 0.0 x10^3/uL (0.0-0.2) Erythrocyte Sedimentation Rate 100 (0-15) Prothrombin Time 15.0 SEC (11.7-14.0) Prothromb Time International Ratio 1.2 (0.8-1.1) Sodium Level 137 mmol/L (136-145) Potassium Level 4.2 mmol/L (3.5-5.1) Chloride Level 98 mmol/L (98-107) Carbon Dioxide Level 31 mmol/L (21-32) Anion Gap 8 (6-14) Blood Urea Nitrogen 14 mg/dL (8-26) Creatinine 0.9 mg/dL (0.7-1.3) Estimated GFR (Cockcroft-Gault) 85.5 Glucose Level 116 mg/dL (70-99) Calcium Level 9.2 mg/dL (8.5-10.1) C-Reactive Protein, Quantitative 55.4 mg/L (0-3.3) Glucose (Fingerstick) 184 mg/dL (70-99) 165 mg/dL (70-99) 144 mg/dL (70-99) Laboratory Tests Test 11/01/19 20:22 11/02/19 08:24 11/02/19 11:29 Glucose (Fingerstick) 184 mg/dL (70-99) 165 mg/dL (70-99) 144 mg/dL (70-99) Imaging I observed an ultrasound examination performed by the musculoskeletal radiologist, Dr. Henning who personally examined the patient under ultrasound and we noted what appeared to be intact quadriceps repair and intact distal patellar tendon and no evidence of any fluid extension into the prepatellar bursa area indicative of any retinacular disruption. He did have a hemarthrosis present, both findings consistent with clinical examination Assessment Assessment Postop total knee arthroplasty with hemarthrosis Plan Plan of Care I discussed with Dr. Eubanks the treatment plan that since his quadriceps and retinacular repair appeared intact and no incisional drainage that he was stable from an orthopedic standpoint for discharge with ongoing gentle terminal flexion in physical therapy and planned follow-up with Dr. Erwin next week unless he has other difficulties in the interim at which point he was encouraged to call including any drainage febrile illness or other concerns CLYDE RESENDIZ MD Nov 02, 2019 20:15
--- NOTE | 2019-11-05 13:29 | HP ---
ADMIT DATE: 11/01/2019 CHIEF COMPLAINT: Fever and painful right knee. HISTORY OF PRESENT ILLNESS: A 64-year-old white male, known diabetic who is diet-controlled, seen on the day of admission for ear pain and bleeding and also pain in his knee. He had fever for a couple of days and some bleeding from the right ear, which was felt to be traumatic from a hearing aid. He was seen by the orthopedic office that same day and admitted directly for evaluation of the knee problem. He had total knee replacement about 2 weeks ago and has been doing well until about 3-4 days prior to admission when he had increasing pain, swelling and some sensation of fever and chills at home. There has been no trauma to the knee. No drainage, bleeding or other symptoms. MEDICATIONS: Listed per the chart. ALLERGIES: PHENERGAN. IMMUNIZATION STATUS: Unknown at this time. SOCIAL HISTORY: He is an employed, , nondrinker, nonsmoker. FAMILY HISTORY: Unremarkable. REVIEW OF SYSTEMS: No other complaints. OBJECTIVE: ENT: He has some scrapes in the right tympanic canal that are not bleeding anymore. The TM is clear; otherwise, all unremarkable. NECK: No masses, nodes or bruits. LUNGS: Clear. CARDIOVASCULAR: Regular rate, mild tachycardia. No murmur. ABDOMEN: Benign, soft, nontender. EXTREMITIES: The right knee wound looks clean with no drainage. Steri-Strips in place. There is redness along the inferior aspect of the incision and no fluctuance is seen. The rest of the leg exam was unremarkable. Distal pulses are good. NEUROLOGIC: Physiologic. ASSESSMENT: 1. Fever, pain and redness in the right knee incision, status post right knee replacement. 2. Traumatic ear canal injury and subsequent bleeding while the patient is on warfarin. 3. Diet-controlled diabetes. PLAN: As ordered. JENARO MERRILL MD DR: LEONIE/derick JOB#: [id number] / [id number]
--- NOTE | 2019-11-05 13:30 | CONS ---
DATE OF CONSULTATION: 11/02/2019 REFERRING PHYSICIAN: Dr. Eubanks. REASON FOR CONSULTATION: Right knee postop swelling. HISTORY OF PRESENT ILLNESS: A 64-year-old male who underwent right total knee arthroplasty on 10/15/2019 using robotic assistance for advanced primary right knee degenerative joint disease. The patient went for physical therapy on 10/22/2019, was unable to do due to swelling, then subsequently went again for physical therapy at which time he felt severe pain after he was on a stationary cycle rocking paddles back and forth. The patient subsequently started having severe pain, swelling in the knee, which got worse. X-ray showed minimal effusion, but significant soft tissue swelling. He also had subjective fevers. He denies being on any antibiotics. Orthopedics has evaluated the patient today. Ultrasound has been planned to rule out rupture, hematoma. He denies any history of trauma to the knee. No drainage. Incision is healing well. The patient had ear pain and bleeding recently, which has now resolved. PAST MEDICAL HISTORY: GERD, diabetes mellitus diet controlled. PAST SURGICAL HISTORY: Appendectomy, thumb surgery, left total knee arthroplasty, right total knee arthroplasty. SOCIAL HISTORY: Employed, , nondrinker, nonsmoker. at bedside. FAMILY HISTORY: As per HPI. REVIEW OF SYSTEMS: Negative except for HPI. PHYSICAL EXAMINATION: VITAL SIGNS: Temperature 97.8, pulse 77, respiratory rate 18, blood pressure 128/77, oxygen saturation 99% on room air. GENERAL: Alert and oriented x 3 male, pleasant, cooperative, lying in bed comfortably, in no acute distress. HEENT: Normocephalic, atraumatic, anicteric. No thrush. Oral mucosa moist. TM, no bleeding noted. NECK: Supple, no JVD. LUNGS: Clear bilaterally. HEART: S1, S2. No gallops or murmurs. ABDOMEN: Soft, nontender, nondistended, no rebound, no guarding. EXTREMITIES: Right knee incision well healed. Steri-Strips in place. Mild surrounding redness along the inferior aspect of the incision, knee effusion. No drainage. No edema, no cyanosis, no clubbing. DERMATOLOGIC: Warm and dry. No generalized rash. NEUROLOGIC: Alert and oriented x 3, grossly nonfocal. PSYCHIATRIC: Cooperative, appropriate mood and affect. LABORATORY DATA: WBC 6.7, hemoglobin 10.9, hematocrit 32.6, platelets 429. ESR 100. Sodium 137, potassium 4.2, chloride 98, bicarbonate 31, BUN 14, creatinine 0.9, glucose 116, calcium 9.2. C-reactive protein 55.4. IMAGING: Knee x-ray as above. Ultrasound of the knee pending at this time. IMPRESSION: 1. Right knee effusion and pain with subjective fevers, status post right knee replacement. Etiology could be noninfectious versus infectious. 2. Diet controlled diabetes. 3. Traumatic ear canal injury with bleeding. The patient is on Coumadin. 4. History of gastroesophageal reflux disease. RECOMMENDATIONS: 1. Would not start empiric antibiotics at this time to increase the yield of culture if synovial aspirate is performed. 2. Followup ultrasound. 3. Orthopedic plans are reviewed. 4. Knee effusion could be noninfectious with the patient being on Coumadin versus infectious. 5. If temperature is greater than 101, obtain blood cultures. 6. Follow up labs. 7. Continue supportive care. 8. Discussed with at bedside. Thank you, Dr. Eubanks, for consulting Infectious Disease to participate in this patient's care. If you have any questions, do not hesitate to contact me. Discussed with nursing staff. MARTHA DAVID MD DR: OPHELIA/nts JOB#: [id number] / [id number]
--- NOTE | 2019-11-05 13:31 | DS ---
DATE OF DISCHARGE: 11/02/2019 HOSPITAL SUMMARY: The patient was admitted directly from the orthopedist's office after pain and swelling in his right knee replacement incision. There was a sed rate that was high as was the CRP and white count, but x-ray showed no acute change. Dr. Brooks felt the sonogram showed no sign of intraoperative disruption of the tissues and he was comfortable to follow the patient as an outpatient at that point. FINAL DIAGNOSES: Knee pain, status post total knee replacement. OPERATIONS: None. PROCEDURES: None. COMPLICATIONS: None. CONSULTATIONS: Dr. Brooks. DISPOSITION: All home meds remain the same. No new medications. Follow up with Dr. Erwin, the surgeon, as recommended and Dr. Eubanks as needed. JENARO EUBANKS MD DR: LEONIE/derick JOB#: [id number] / [id number]
== END 2019-11-02 14:15 | disposition home or self-care (01) | DRG 554 ==
LOC: 4 NORTH 13:31
PROVIDERS: ADMIT Family Medicine; ATTEND Family Medicine
DX: M25.061 Hemarthrosis, right knee (principal); H92.21 Otorrhagia, right ear; E11.9 Type 2 diabetes mellitus without complications; Z79.01 Long term (current) use of anticoagulants; Z96.653 Presence of artificial knee joint, bilateral; K21.9 Gastro-esophageal reflux disease without esophagitis; Z88.8 Allergy status to other drugs, medicaments and biological substances; Z79.899 Other long term (current) drug therapy; S09.91XA Unspecified injury of ear, initial encounter
CPT/HCPCS: 36415; 76882; 80048; 82962; 85025; 85610; 85651; 86140; J1815; G0378

== ENCOUNTER → 2020-01-04 | Outpatient (CLI) | payer OTHER ==
[~2020-01-04] MED LIST changes: +OXYC1TAB22 PO; +WARF-78 PO
== END ==
LOC: LAB 09:39
PROVIDERS: ATTEND Orthopaedic Surgery Sports Medicine
DX: Z96.651 Presence of right artificial knee joint (principal)
CPT/HCPCS: 36415; 85651; 86141